=== PATIENT | female | born 1945 | race Caucasian/White ===

== ENCOUNTER → 2017-12-27 10:42 | Outpatient (CLI) | payer OTHER, SELFPAY ==
--- NOTE | 2017-12-27 | MISC_PTH ---
PATIENT: BIMAL FRAUSTO LOC: [facility] U#:[id number] AGE/SX: 79/F ROOM: RE12/27/[address]: Dr. Ariana Adan DPM : 1945 BED: DIS: SPEC #: [id number] RECD: 12/27/17 12:22 STATUS: AYAZ EMBER #: [id number] BRANDO: 12/27/17 00:[address]: Ariana Adan DEPT: SURGICAL PATHOLOGY RECD BY: Luiza Costello ENTERED: 12/27/17 12:23 SP TYPE: MISC JAIME DR: Dr. Misael Dickens, DO Tissues: Nail of toe, NOS Procedures: Surgery Specimen Level I HEADER OPERATION: Not noted PRE-OP DIAGNOSIS: Nail disorder, unspecified TISSUE SUBMITTED: Toenail MICROSCOPIC DIAGNOSIS Toenail, biopsy: Superficial squamous mucosa with hyperkeratosis. AM:[place] 10/9/18 MICROSCOPIC DESCRIPTION Slides are reviewed. GROSS DESCRIPTION Received in fixative is one container labeled with the patient's name and designated toenail. The specimen consists of two pieces of tissue including nail measuring in aggregate 1.5 x 0.5 x 0.3 cm. The entire specimen is submitted in one cassette. / SJ:rg 12/27/17 TC:5 CPT: [id number]
[2017-12-27 10:59] LABS: Cytology, Body Fluid / CSF SEE PATHOLOGY REPORT
== END ==
PROVIDERS: Family Provider Family Medicine; PCP Family Medicine; Referring Provider Podiatrist Foot & Ankle Surgery; Visit Provider Podiatrist Foot & Ankle Surgery
DX: L60.9 Nail disorder, unspecified (principal)
CPT/HCPCS: 88300

== ENCOUNTER → 2018-01-20 12:34 | Outpatient (CLI) | payer SELFPAY ==
--- NOTE | 2018-01-20 12:37 | VDLE_ITS ---
Reason For Study: PVD RIGHT LEFT CFV is compressible, spontaneous, phasic, CFV is compressible, spontaneous, phasic, competent and demonstrates normal competent, and demonstrates normal augmentation. augmentation. FV is compressible, spontaneous, phasic, FV is compressible, spontaneous, phasic, competent and demonstrates normal competent and demonstrates normal augmentation. augmentation. POP V is compressible, spontaneous, phasic, POP V is compressible, spontaneous, phasic, competent and demonstrates normal competent and demonstrates normal augmentation. augmentation. T/P Trunk is compressible. T/P Trunk is compressible. PTV is compressible. PTV is compressible. RT PerV is compressible. LT PerV is compressible. SFJ is INCOMPETENT. SFJ is INCOMPETENT. GSV is INCOMPETENT throughout for greater GSV is INCOMPETENT throughout for greater than 0.5 seconds with a diameter of 0.31 x than 0.5 seconds with a diameter of 0.24 x 0.35 cm. 0.31 cm. SSV is competent. ASV at SFJ is INCOMPETENT for greater than Procedure 0.5 seconds with a diameter of 0.68 x 0.75. Exam performed in department. ASV 2 at distal thigh is INCOMPETENT for greater than 0.5 seconds with a diameter of 0.37 x 0.35 cm. SSV is INCOMPETENT for greater than 0.5 seconds with a diameter of 0.16 x 0.21 cm INCOMPETENT Cloud Security Architect 15 cm proximal of medial malleolus. <> Interpretation Summary Deep veins of the lower extremities are bilaterally patent and compressible segmentally. There is no evidence of deep vein thrombosis on either side. Valvular competence appears intact within the proximal deep venous systems bilaterally. The greater saphenous veins appear bilaterally patent and compressible segmentally. Sapheno-femoral junctions are bilaterally incompetent . Segmental valvular incompetence is noted within the greater saphenous veins bilaterally. The right small saphenous vein is patent and competent. The left small saphenous vein is patent and incompetent. Two accessory saphenous veins in the left thigh are incompetent. An incompetent pmp certified project manager vein is noted in the left calf, located 15 centimeters proximal to the left medial malleolus. Ordering Physician: Fernando Luna Referring Physician: Misael Dickens Performed By: Tania Johns RVT and Student
--- NOTE | 2018-01-23 10:28 | LEAS ---
Arterial Study - Arterial Study Arterial Study: This is a 72-year-old female with a history of hypertension, diabetes mellitus, and pacemaker placement. The patient presents with bilateral lower extremity pain. Suspecting the presence of atherosclerotic peripheral arterial occlusive disease, the patient was brought to the noninvasive vascular laboratory at this time for the purpose of bilateral noninvasive lower extremity arterial assessment. Doppler signal assessment was used to evaluate the pulses at ankle level bilaterally. The posterior tibial and dorsalis pedis pulses were biphasic bilaterally. Segmental limb pressures were obtained bilaterally. The right ankle pressure, as determined by posterior tibial pulse, was measured at 124 mmHg. The right ankle pressure, as determined by dorsalis pedis pulse, was measured at 175 mmHg. The right digital pressure was measured at 49 mmHg. The left ankle pressure, as determined by posterior tibial pulse, was measured at 142 mmHg. The left ankle pressure, as determined by dorsalis pedis pulse, was measured at 204 mmHg. The left digital pressure was measured at 91 mmHg. Pulse?volume recordings were obtained bilaterally and segmentally. Waveform amplitudes appeared to be satisfactory at low thigh, calf, and ankle levels bilaterally. Waveforms appeared to be diminished at digital level on the right. Resting ankle?brachial indices were calculated bilaterally. The resting right ankle?brachial index was calculated to be 1.08. The resting left ankle?brachial index was calculated to be 1.26. Digital?brachial indices were calculated bilaterally. The right digital-brachial index was calculated to be 0.30. The left digital-brachial index was calculated to be 0.56. Impression: Based upon the findings of this resting noninvasive lower extremity arterial study, arterial perfusion appears to be relatively normal to ankle level bilaterally. Biphasic waveforms were noted at ankle level bilaterally. Resting ankle?brachial indices are bilaterally normal. However, the right digital-brachial index is moderately to severely diminished, suggestive of [id number] distal, small?vessel arterial occlusive disease in the right lower extremity. The left digital-brachial index is mildly diminished, consistent with mild, distal, small?vessel arterial occlusive disease in the left lower extremity. Clinical correlation is advised.
--- NOTE | 2018-01-23 10:35 | LEAS_ITS ---
Arterial Study - Arterial Study Arterial Study: This is a 72-year-old female with a history of hypertension, diabetes mellitus, and pacemaker placement. The patient presents with bilateral lower extremity pain. Suspecting the presence of atherosclerotic peripheral arterial occlusive disease, the patient was brought to the noninvasive vascular laboratory at this time for the purpose of bilateral noninvasive lower extremity arterial assessment. Doppler signal assessment was used to evaluate the pulses at ankle level bilaterally. The posterior tibial and dorsalis pedis pulses were biphasic bilaterally. Segmental limb pressures were obtained bilaterally. The right ankle pressure, as determined by posterior tibial pulse, was measured at 124 mmHg. The right ankle pressure, as determined by dorsalis pedis pulse, was measured at 175 mmHg. The right digital pressure was measured at 49 mmHg. The left ankle pressure, as determined by posterior tibial pulse, was measured at 142 mmHg. The left ankle pressure, as determined by dorsalis pedis pulse, was measured at 204 mmHg. The left digital pressure was measured at 91 mmHg. Pulse?volume recordings were obtained bilaterally and segmentally. Waveform amplitudes appeared to be satisfactory at low thigh, calf, and ankle levels bilaterally. Waveforms appeared to be diminished at digital level on the right. Resting ankle?brachial indices were calculated bilaterally. The resting right ankle?brachial index was calculated to be 1.08. The resting left ankle?brachial index was calculated to be 1.26. Digital?brachial indices were calculated bilaterally. The right digital- brachial index was calculated to be 0.30. The left digital-brachial index was calculated to be 0.56. Impression: Based upon the findings of this resting noninvasive lower extremity arterial study, arterial perfusion appears to be relatively normal to ankle level bilaterally. Biphasic waveforms were noted at ankle level bilaterally. Resting ankle?brachial indices are bilaterally normal. However, the right digital-brachial index is moderately to severely diminished, suggestive of [id number] distal, small?vessel arterial occlusive disease in the right lower extremity. The left digital-brachial index is mildly diminished, consistent with mild, distal, small?vessel arterial occlusive disease in the left lower extremity. Clinical correlation is advised.
== END ==
PROVIDERS: Family Provider Family Medicine; PCP Family Medicine; Referring Provider Surgery; Visit Provider Surgery
DX: I87.2 Venous insufficiency (chronic) (peripheral) (principal); I83.10 Varicose veins of unspecified lower extremity with inflammation; I73.9 Peripheral vascular disease, unspecified
CPT/HCPCS: 93923; 93970